=== PATIENT | female | born 1970 | race Caucasian/White ===

== ENCOUNTER 2023-03-21 21:13 | Emergency (ER) | payer BC ==
[~2023-03-21] VITALS: Ht 172.7 cm; Wt 104.1 kg
[~2023-03-21 21:13] MED LIST: CITA-311 PO; CLOM25CA2 PO; CLON0.1T2 PO; HYDR50CA PO; LORA-269 PO; OLAN20TA5 PO; QUET-1 PO; QUET25TA PO; VALB60CA
[2023-03-21 21:39] VITALS: BP 135/81; PULSE 87; RESP 16; TEMP 98.2; O2SAT 96
[2023-03-21] MEDS ORDERED: LORA-269 PO (22:18)
[2023-03-21] MEDS ORDERED: LORazepam 1 MG tablet PO ONE (22:20)
== END 2023-03-21 22:41 | disposition home or self-care (01) ==
LOC: ER 21:14
DX: F41.9 Anxiety disorder, unspecified (principal); Z79.899 Other long term (current) drug therapy
CPT/HCPCS: 99283

== ENCOUNTER 2023-09-02 22:47 | Emergency (ER) | payer BC ==
[~2023-09-02] VITALS: Ht 172.7 cm; Wt 91.3 kg
[~2023-09-02 22:47] MED LIST changes: -VALB60CA; +VALB60CA PO
[2023-09-02 22:51] VITALS: TEMP 98
[2023-09-02 23:25] LABS: URINE HCG NEGATIVE (NEG)
[2023-09-02 23:27] LABS: BASOPHILS # (AUTO) 0.1 X10'3 (0-0.2); EOSINOPHILS # (AUTO) 0.2 X10'3 (0-0.9); EOSINOPHILS % (AUTO) 1.4 % (0-6); HEMOGLOBIN 15.3 g/dl (12.0-16.0); LYMPHOCYTES # (AUTO) 2.2 X10'3 (1.1-4.8); LYMPHOCYTES % (AUTO) 17.3 % (21-51); MEAN CORPUSCULAR HGB CONC 33.3 g/dL (33.0-36.5); MEAN CORPUSCULAR VOLUME 87.1 FL (78-98); MEAN PLATELET VOLUME 7.8 FL (7.4-10.4); NEUTROPHILS # (AUTO) 9.3 X10'3 (1.8-7.7); NEUTROPHILS % (AUTO) 72.3 % (42-75); PLATELET COUNT 339 X10'3 (140-440); RED BLOOD COUNT 5.28 X10'6 (4.20-5.60); RED CELL DISTRIBUTION WIDTH 13.3 % (11.5-14.5); WHITE BLOOD COUNT 12.9 X10'3 (4.5-11.0)
[2023-09-02 23:41] LABS: URINE AMPHETAMINE SCREEN NEGATIVE (Neg); URINE BARBITUATE SCREEN NEGATIVE (Neg); URINE BENZODIAZEPINES SCREEN NEGATIVE (Neg); URINE CANNABINOID SCREEN NEGATIVE (Neg); URINE COCAINE SCREEN NEGATIVE (Neg); URINE METHADONE SCREEN NEGATIVE (Neg); URINE OPIATE SCREEN NEGATIVE (Neg); URINE PHENCYCLIDINE SCREEN NEGATIVE (Neg)
[2023-09-02 23:45] LABS: ALBUMIN 4.1 G/DL (3.4-5.0); ANION GAP 12 (8-16); BLOOD UREA NITROGEN 22 MG/DL (7-18); BUN/CREATININE RATIO 18.6 (10.0-20.0); CALCIUM 9.4 MG/DL (8.5-10.1); CHLORIDE 107 MMOL/L (99-107); CREATININE 1.18 MG/DL (0.40-0.90); GLUCOSE 117 MG/DL (70-104); POTASSIUM 3.6 MMOL/L (3.5-5.1); SODIUM 142 MMOL/L (135-145); THYROID STIMULATING HORMONE 4.51 ulU/ml (0.34-4.50); TOTAL CARBON DIOXIDE 23.5 MMOL/L (24-32); eCRCL 57 ML/MIN; eGFR 48 ML/MIN
[2023-09-02 23:51] LABS: BILIRUBIN,URINE NEGATIVE (Neg); CLARITY,URINE CLEAR (Clear); COLOR,URINE YELLOW (Yellow); GLUCOSE, URINE NEGATIVE (Neg); KETONES,URINE TRACE mg/dl (Neg); LEUKOCYTE ESTERASE ,URINE SMALL (Neg); NITRITES, URINE NEGATIVE (Neg); OCCULT BLOOD,URINE NEGATIVE (Neg); PROTEIN,URINE NEGATIVE (Neg); UROBILINOGEN,URINE 0.2 E.U/dL (0.2-1.0)
[2023-09-02 23:52] LABS: UA COLLECTION TYPE CLN CATCH MIDSTREAM
[2023-09-02 23:57] LABS: SALICYLATE 1.5 MG/DL (4.0-20.0)
[2023-09-02 23:59] LABS: BACTERIA,URINE 2+ /HPF (Neg); MUCUS STRANDS MANY /LPF (Neg); RBC,URINE NONE SEEN /HPF (0-2); SQUAMOUS EPITHELIAL CELL,UR MANY /LPF (FEW); WBC,URINE 30-50 /HPF (0-4)
[2023-09-02 23:59] LABS: ACETAMINOPHEN < 2.0 UG/ML (10-30); ETHANOL < 10 MG/DL (<10)
[2023-09-03] MEDS ORDERED: LITH150C8 PO (00:27)
[2023-09-03] MEDS ORDERED: CITA10TA22 PO (00:27)
[2023-09-03] MEDS ORDERED: BUSP15TA7 PO (00:27)
[2023-09-03] MEDS ORDERED: LORA1CAP PO (00:27)
[2023-09-03] MEDS ORDERED: PALI234D IM (00:29)
[2023-09-03] MEDS: LORazepam 1 MG tablet PO ONE (01:18)
[2023-09-03] MEDS ORDERED: paliperidone palmitate inj 234 MG/1.5 ML SYRINGE IM SCH (01:40)
[2023-09-03] MEDS: cephalexin 500mg capsule PO STA (03:32)
[2023-09-03 03:34] LABS: FREE T4 (FREE THYROXINE) 1.03 NG/DL (0.73-1.40)
[2023-09-03] MEDS: busPIRone 15mg tablet PO SCH ×2 (08:00→09:24)
[2023-09-03] MEDS ORDERED: TYPE IN GENERIC & BRAND NAME OF PATIENT MED STRENGTH & FORM PO SCH (08:00)
[2023-09-03] MEDS: lithium carbonate 150mg capsule PO SCH (08:00)
[2023-09-03 08:45] VITALS: BP 125/79; PULSE 73; RESP 14; O2SAT 97
[2023-09-03] MEDS: CITALOpram 10mg tablet PO SCH (09:24)
[2023-09-03] MEDS ORDERED: OLANZapine 5mg rapidly disint. tablet PO SCH (21:00)
[2023-09-03] MEDS ORDERED: hydrOXYzine 25 MG tablet PO SCH (21:00)
[2023-09-03] MEDS ORDERED: LORazepam 1 MG tablet PO SCH (21:00)
[2023-09-13] MEDS ORDERED: paliperidone palmitate inj 234 MG/1.5 ML SYRINGE IM SCH (12:00)
== END 2023-09-03 10:07 | disposition home or self-care (01) ==
LOC: ER 22:47
DX: R45.851 Suicidal ideations (principal); Z20.822 Contact with and (suspected) exposure to COVID-19; F41.0 Panic disorder [episodic paroxysmal anxiety]; N39.0 Urinary tract infection, site not specified; Z79.899 Other long term (current) drug therapy
CPT/HCPCS: 36415; 80048; 80178; 80305; 80320; 80329; 81001; 81025; 84439; 84443; 85025; 87811; 99285

== ENCOUNTER 2023-10-16 23:23 | Emergency (ER) | payer BC ==
[~2023-10-16] VITALS: Ht 172.7 cm; Wt 88.2 kg
[~2023-10-16 23:23] MED LIST changes: +BUSP15TA7 PO; -CITA-311 PO; +CITA10TA22 PO; -CLOM25CA2 PO; -CLON0.1T2 PO; +LITH150C8 PO; -LORA-269 PO; +LORA1CAP PO; +PALI234D IM; -QUET-1 PO; -QUET25TA PO
[2023-10-16 23:49] VITALS: BP 124/75; PULSE 87; RESP 18; TEMP 98.2; O2SAT 97
[2023-10-17 00:28] LABS: BASOPHILS % (AUTO) 0.3 % (0-1); EOSINOPHILS # (AUTO) 0.2 X10'3 (0-0.9); HEMATOCRIT 43.6 % (35.0-45.0); HEMOGLOBIN 14.5 g/dl (12.0-16.0); LYMPHOCYTES # (AUTO) 2.1 X10'3 (1.1-4.8); LYMPHOCYTES % (AUTO) 13.9 % (21-51); MEAN CORPUSCULAR HEMOGLOBIN 28.5 PG (27.0-31.0); MEAN CORPUSCULAR HGB CONC 33.1 g/dL (33.0-36.5); MEAN CORPUSCULAR VOLUME 85.8 FL (78-98); MEAN PLATELET VOLUME 8.7 FL (7.4-10.4); MONOCYTES # (AUTO) 1.2 X10'3 (0-0.9); MONOCYTES % (AUTO) 7.8 % (2-12); NEUTROPHILS # (AUTO) 11.5 X10'3 (1.8-7.7); PLATELET COUNT 330 X10'3 (140-440); RED BLOOD COUNT 5.08 X10'6 (4.20-5.60); RED CELL DISTRIBUTION WIDTH 13.4 % (11.5-14.5); WHITE BLOOD COUNT 14.9 X10'3 (4.5-11.0)
[2023-10-17 00:53] LABS: ALBUMIN 4.1 G/DL (3.4-5.0); ANION GAP 10 (8-16); BLOOD UREA NITROGEN 22 MG/DL (7-18); BUN/CREATININE RATIO 21.8 (10.0-20.0); CALCIUM 9.2 MG/DL (8.5-10.1); CHLORIDE 107 MMOL/L (99-107); CREATININE 1.01 MG/DL (0.40-0.90); GLUCOSE 110 MG/DL (70-104); POTASSIUM 3.6 MMOL/L (3.5-5.1); SODIUM 139 MMOL/L (135-145); THYROID STIMULATING HORMONE 2.44 ulU/ml (0.34-4.50); TOTAL CARBON DIOXIDE 22.2 MMOL/L (24-32); eCRCL 66 ML/MIN; eGFR 58 ML/MIN
[2023-10-17 00:56] LABS: ETHANOL < 10 MG/DL (<10)
== END 2023-10-17 00:31 | disposition left against medical advice (07) ==
LOC: ER 23:24
DX: F41.9 Anxiety disorder, unspecified (principal); Z53.21 Procedure and treatment not carried out due to patient leaving prior to being seen by health care provider
CPT/HCPCS: 36415; 80048; 80320; 84443; 85025